=== PATIENT | female | born 1965 | race Caucasian/White ===

== ENCOUNTER 2017-09-06 09:18 | Emergency (ER) | payer OTHER ==
[~2017-09-06] VITALS: Wt 56.7 kg
[~2017-09-06 09:18] MED LIST: AUGMENTIN 875 M1 TAB PO; CLARITIN10 MG PO; DAYPRO600 M1 PO; Fioricet 325 MG1 TAB PO; MIGRAINE MED; MULTIPLE VITAMI1 TAB PO; ROBAXIN750 MG PO; SUMATRIPTAN; TOPIRAMATE25 M1 PO
[2017-09-06 09:55] LABS: BASO # 0.1 10*3/uL (0.0-0.1); EOS # 0.1 10*3/uL (0.0-0.4); EOS % 1.2 % (1.0-4.0); HEMATOCRIT 39.7 % (37.0-47.0); HEMOGLOBIN 13.6 g/dl (12.0-16.0); LYMPH # 2.2 10*3/uL (1.3-4.4); MEAN CELL VOLUME 85.6 fl (81.0-99.0); MEAN CORPUSCULAR HGB 29.3 pg (27.0-31.0); MEAN CORPUSCULAR HGB CONC 34.3 g/dl (33.0-37.0); MEAN PLATELET VOLUME 10.4 fl (9.6-12.3); MONO # 0.3 10*3/uL (0.1-1.0); NEUT # 2.5 10*3/uL (2.3-7.9); NEUT % 48.6 % (47.0-73.0); PLATELET COUNT AUTOMATED 276 10*3/uL (130-400); RED BLOOD COUNT 4.64 10*6/uL (4.10-5.10); RED CELL DISTRI WIDTH 11.9 % (0-14.5); WHITE BLOOD COUNT 5.2 10*3/uL (4.8-10.8)
[2017-09-06 10:03] LABS: INTERNATIONAL NORM RATIO 0.9 (2.0-3.5)
[2017-09-06 10:12] LABS: ALKALINE PHOSPHATASE 118 U/L (45-117); BUN 10 mg/dl (7-24); CHLORIDE 104 mmol/L (98-107); CREATININE 0.78 mg/dL (0.55-1.02); POTASSIUM 3.6 mmol/L (3.5-5.1); SGOT/AST 12 IU/L (3-35); SGPT/ALT 21 U/L (12-78); SODIUM 139 mmol/L (136-145); TOTAL PROTEIN 7.6 gm/dL (6.4-8.2)
[2017-09-06 10:18] LABS: TROPONIN I < 0.015 ng/ml (<0.045)
[2017-09-06] MEDS ORDERED: ZITHROMAX250 MG PO (11:04)
[2017-09-06 11:34] VITALS: BP 107/63
== END 2017-09-06 12:44 | disposition home or self-care (01) ==
LOC: ED 09:18
PROVIDERS: Physician Assistant
DX: F10.10 Alcohol abuse, uncomplicated (principal); R55 Syncope and collapse; J18.9 Pneumonia, unspecified organism